=== PATIENT | male | born 1960 | race Caucasian/White ===

== ENCOUNTER 2020-07-14 07:15 | Outpatient (REF) | payer OTHER, SELFPAY ==
[2020-07-14 07:44] LABS: COVID-19 Test Negative (Negative); IDNOW Serial# 55D5AD1C
== END 2020-07-14 07:16 | disposition home or self-care (01) ==
LOC: HO.EMPCOV 07:15
PROVIDERS: PCP Internal Medicine; Visit Provider Internal Medicine
DX: Z20.828 Contact with and (suspected) exposure to other viral communicable diseases (principal)
CPT/HCPCS: 87635; C9803

== ENCOUNTER 2023-02-13 09:00 | Outpatient (AMB) | payer OTHER, SELFPAY ==
--- NOTE | 2023-02-13 09:02 | MHC.OFFVIS ---
Intake Intake Visit Reasons: New prob- Lt knee pain - No recent XR Intake Note: Joaquín is a 62 year old male who presents today for a new problem visit with complaints of left knee pain. Hx of right knee 02/03/2020 KI. 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 Since this injury he has felt pain, he thought that this would resolve but it seems to flair up more often. He has pain and fluid in the knee. He squats frequently for work. He takes OTC NSAIDs and ice application which does offer mild relief. Allergies No Known Allergies Allergy (Unverified 04/27/20 17:33) HPI New prob- Lt knee pain - No recent XR HPI Details Joaquín is a 62 year old man who presents with complaints of left knee pain. 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 He reports pain with daily activity, worse with squatting or kneeling activities, as well as using stairs. He says his pain began ~1 year ago when he injured his knee doing construction at home. He uses ice and NSAIDs, with some relief, and denies any prior treatment. He thought his knee pain would resolve so he did not seek formal treatment. He says his pain worsened in the last few weeks from overuse. He describes his pain mostly as dull, and says he has some fluid in his knee. He has a Hx of right knee by Dr. Bearden, DOS: 02/03/20, which he says went well. [facility] Surgical History (Updated 02/10/23 @ 13:29 by Anitra Pollard CMA) H/O arthroscopy of right knee (02/03/20) Social History (Updated 02/13/23 @ 09:18 by Anitra Pollard CMA) Current occupational status: employed Current occupation: IT Review of Systems Const All systems reviewed & are unremarkable except as noted in HPI and below Physical Exam Const General: no acute distress, alert and awake Orientation/consciousness: patient oriented x3 HEENT Head: Yes normocephalic and Yes atraumatic Eyes EOM: EOMs intact bilaterally Resp Effort & Inspection: normal respiratory effort and able to speak in complete sentences Cardio Jugular venous distension: no JVD Skin General skin exam: turgor normal Rashes: no rashes Neuro General: patient oriented x3 Extrem Other: Left Knee: TTP medial joint line - Jenna's Moderate effusion Psych Appearance: grossly normal Affect: normal affect Attitude: cooperative Office Procedures Joint Injection/Drain Joint Injection/Drain Details: Injected 1 mL of Decadron and 3 mL 1% lidocaine and 3 mL of 0.25% Marcaine. Site was prepped using aseptic technique. Patient tolerated the procedure well. Primary Site: left knee Approach Used: anterolateral Coding - Large joint Procedure code (CPT) selection complete Results Reviewed Results Reviewed: 02/13/23 09:30 BUPivacaine MPF 0.25 % [Sensorcaine-MPF 0.25% 10 ML] 10 ml .ROUTE .STK-MED ONE Lidocaine HCl 2 % MPF [Xylocaine 2 % MPF] 5 ml .ROUTE .STK-MED ONE dexAMETHasone sod phosphate [Decadron] 4 mg .ROUTE .STK-MED ONE I personally reviewed relevant radiographs. Mild left knee osteoarthritis Assessment & Plan Assessment & Plan (1) Osteoarthritis of left knee: Code(s): M17.12 - Unilateral primary osteoarthritis, left knee Plan: This is a 62 year old man with mild left knee OA with mild effusion. He has pain with daily activity, worse with squatting & kneeling activities as well as using stairs. He denies any prior treatment, and finds relief from ice & NSAIDs. I discussed his diagnosis and treatment options. I recommend PT, RICE, & NSAIDs. I injected his left knee today, which he tolerated well, and ordered PT for strengthening. He will follow up in 3 months, sooner prn. Plan Scribed for Jamie Hackett MD by Alvin Mir, medical oncology physician, on 02/13/23 at 9:25 AM, EST. Orders: Orders XR knee LT 2V 02/13/23 M25.562 - Pain in left knee XR knee standing BI 02/13/23 M25.562 - Pain in left knee PT Evaluation and Treatment 02/13/23 M17.12 - Unilateral primary osteoarthritis, left knee Coding Level of Care Code Est Pt Level 3 (33358) Diagnoses Osteoarthritis of left knee M17.12 CPT Codes Coding - Large joint: 21754 - Large joint ([id number])
== END 2023-02-13 09:49 | disposition home or self-care (01) ==
PROVIDERS: PCP Internal Medicine; Visit Provider Orthopaedic Surgery
DX: M17.12 Unilateral primary osteoarthritis, left knee (principal)
CPT/HCPCS: 20610; 99213

== ENCOUNTER 2023-02-13 09:00 | Outpatient (REF) | payer OTHER, SELFPAY | END 2023-02-13 09:01 | disposition home or self-care (01) | LOC: HO.HOSX 09:00 | PROVIDERS: PCP Internal Medicine; Visit Provider Orthopaedic Surgery | DX: M17.12 Unilateral primary osteoarthritis, left knee (principal) | CPT/HCPCS: 20610; 73560; 73565; J1100 ==

== ENCOUNTER 2023-02-26 12:54 | Outpatient (RCR) | payer OTHER, SELFPAY ==
--- NOTE | 2023-02-27 15:30 | MHC.PT.EP ---
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 HE STATES THAT HE BEGAN TO NOTE INCREASED LEFT KNEE DISCOMFORT ABOUT ONE YEAR AGO WITH SOME HOME CONSTRUCTION PROJECTS. IT HAS CONTINUED TO BOTHER HIM AND IS NOW BECOMING MORE FREQUENT, MORE INTENSE. HE REPORTS PAIN WORSENS WITH LONG PERIODS OF STANDING AND WALKING, SQUATTING AND KNEELING. HE REPORTS INTERMITTENT SWELLING. DENIES ANY SIGNIFICANT CREPITUS. PAIN IS INDICATED ALONG THE MEDIAL JOINT LINE. DENIES ANY PARESTHESIA OR ALTERED SENSATION. UPON EXAM IMPAIRMENTS INCLUDE DECREASED HIP AND LE STRENGTH, ALTERED GAIT PATTERN, INCREASED PAIN. FUNCTIONAL LIMTATIONS INCLUDE DECREASED ABILITY TO PERFORM LONG PERIODS OF WALKING, STATIC STANDING OR SQUATTING, DECREASED ABILITY TO KNEEL, DECREASED ABILITY TO PERFORM RECIPROCAL GAIT ON STAIRS. HE REPORTS DECREASED ABILITY TO PERFORM HIGHER DEMAND WORK AND HOMEMAKING TASKS AND DECREASED PARTICIPATION IN FITNESS AND RECREATIONAL ACTIVITIES. Frequency and Duration: The patient will be seen 2 X WEEK FOR 4 WEEKS Short Term Goals: INITIATE HEP AND PROMOTE SELF MANAGEMENT OF SYMPTOMS B2B Outside Sales Representative Goals: FULL PAIN FREE KNEE ROM FULL LE STRENGTH EQUAL ANNELISE PAIN FREE RECIPROCAL GAIT ON STAIRS AT MINIMUM 75% OF FULL FUNCTIONAL SQUAT WITH CORRECT FORM, PAIN FREE Treatment Plan: Modalities to reduce pain, spasms and effusion. Manual therapy to restore motion and function. Therapeutic exercise to improve strength and flexibility. Neuromuscular re-education for posture and balance. Therapeutic activities to return to functional activities of daily living. Electronically signed by: BRITTNI CUNHA PT DPT Please sign and return to therapist. Thank you for your referral.
--- NOTE | 2023-03-10 12:45 | MHC.PT.DC ---
[facility] [place] Office [place] Office [place] Office [address] Kenneth Rodríguez 140 [facility] [phone] F: [phone] F: [phone] F: [phone] F: [phone] Physical Therapy Discharge Report Diagnosis: LEFT KNEE OA (KP) Date of Surgery: Date of Evaluation: 02/26/23 Date of Discharge: 03/10/23 Treatments to Date: 1 Cancellations to Date: 0 No Shows to Date: 0 Discharge Status: Physician Discontinued Tx Discharge Summary: Will be undergoing surgery for meniscal tear. Electronically signed by: Anitra Dia PT DPT Please sign and return to therapist. Thank you for your referral.
== END 2023-03-10 12:45 | disposition home or self-care (01) ==
LOC: HO.PT 12:54
PROVIDERS: PCP Internal Medicine; Visit Provider Orthopaedic Surgery
DX: M17.12 Unilateral primary osteoarthritis, left knee (principal)
CPT/HCPCS: 97110; 97161

== ENCOUNTER 2023-03-03 08:56 | Outpatient (AMB) | payer OTHER, SELFPAY ==
--- NOTE | 2023-03-03 09:07 | A.OFFVIS_ITS ---
Intake Intake Visit Reasons: OV-Left knee pain Intake Note: last injection 02/13/23. Patient reports that the injection was only mildly helpful, it helped with his swelling and lowered his pain. He explains that he was doing yard work yesterday and stumbled upon a wasps nest, so he ran. He finds that he now has increased pain in the knee and is hoping to have an MRI. Allergies No Known Allergies Allergy (Unverified 04/27/20 17:33) HPI OV-Left knee pain HPI Details Joaquín is a 62 year old man who presents with complaints of left knee pain. 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 He was last seen, and injected, on 02/13/23, with some relief of his pain and swelling. He says yesterday he was forced to run away from a nest of wasps, and his pain and swelling have worsened because of this. He would like an MRI of his knee He says he found some relief from his pain with Gabapentin he had at home, and he has been taking Ibuprofen which has helped his swelling somewhat. [facility] Surgical History H/O arthroscopy of right knee (02/03/20) Social History Current occupational status: employed Current occupation: IT Review of Systems Const All systems reviewed & are unremarkable except as noted in HPI and below Physical Exam Const General: no acute distress and alert Orientation/consciousness: patient oriented x3 Neuro General: patient oriented x3 Extrem Other: Left Knee: TTP medial joint line Moderate effusion Fullness posteriorly Ambulates with antalgia Psych Appearance: grossly normal Affect: normal affect Attitude: cooperative Assessment & Plan Assessment & Plan (1) Osteoarthritis of left knee: Code(s): M17.12 - Unilateral primary osteoarthritis, left knee Plan: This is a 62 year old man with mild left knee OA with moderate effusion. He has pain with daily activity, worse with squatting & kneeling activities as well as using stairs. He was injected on 02/13/23, with some improvement of his pain & swelling, but was forced to run on 03/02/23, and now has worsening swelling & pain. I ordered an MRI to assess his left knee and I recommend PT, RICE, & NSAIDs. He will follow up after the MRI for review. (2) Effusion, left knee: Code(s): M25.462 - Effusion, left knee Plan Scribed for Jamie Hackett MD by Alvin Mir, medical attendant, on 03/03/23 at 9:15 AM, EST. Orders: Orders shoulder LT wo con Today M25.462 - Effusion, left knee Coding Level of Care Code Est Pt Level 4 (81097) Diagnoses Osteoarthritis of left knee M17.12 Effusion, left knee M25.462
== END 2023-03-03 11:53 | disposition home or self-care (01) ==
PROVIDERS: PCP Internal Medicine; Visit Provider Orthopaedic Surgery
DX: M17.12 Unilateral primary osteoarthritis, left knee (principal); M25.462 Effusion, left knee
CPT/HCPCS: 99214

== ENCOUNTER → 2023-03-03 08:56 | Outpatient (BNVA) | payer OTHER, SELFPAY | PROVIDERS: PCP Internal Medicine; Visit Provider Orthopaedic Surgery ==

== ENCOUNTER 2023-03-04 11:05 | Outpatient (REF) | payer OTHER, SELFPAY ==
--- NOTE | ~2023-03-04 | MR_ITS ---
EXAMINATION: MR KNEE WITHOUT CONTRAST, LEFT CLINICAL INFORMATION: Left knee pain. Effusion. Increasing symptoms following an injury one week ago. COMPARISON: Left knee radiographs dated 02/13/2023. TECHNIQUE: MRI of the knee without contrast was performed using routine sequences on a high-field scanner. FINDINGS: MENISCI: Medial Meniscus: Oblique inner margin radial tear of the meniscal body with extension posteriorly to the posterior body/posterior horn junction. Overall, this measures up to 1.7 cm in AP dimension without a significantly displaced meniscal flap. Mild medial extrusion of the meniscal body. Lateral Meniscus: Intact. LIGAMENTS: Cruciate: Mildly increased T1 signal within the anterior cruciate ligament, which could represent normal variation versus a Grade 1 sprain/partial tear or early mucoid degeneration. Intact posterior cruciate ligament. Collateral: Mild edema adjacent to the medial collateral ligament, consistent with an acute Grade 1 sprain/partial tear. Intact fibular collateral ligament. EXTENSOR MECHANISM: Intact. ARTICULAR CARTILAGE/BONE: Patellofemoral Compartment: Intact articular cartilage. Medial Compartment: Minimally increased T2 signal within the medial most aspect of the medial femoral condyle and medial tibial plateau, consistent with minimal osseous contusions. No fracture line. Intact articular cartilage. Lateral Compartment: Intact articular cartilage. JOINT FLUID AND BURSAE: Small to moderate joint effusion and trace Whiting's cyst. MR/MR knee LT wo con IMPRESSION: 1. Oblique inner margin radial tear of the medial meniscal body with extension posteriorly to the posterior body/posterior horn junction. Mild medial extrusion of the meniscal body. 2. Probable Grade 1 sprain/partial tear of the medial collateral ligament. 3. Increased T1 signal within the anterior cruciate ligament, which could represent normal variation versus a Grade 1 sprain/partial tear or early mucoid degeneration. 4. Minimal osseous contusions at the medial most aspect of the medial femoral condyle and medial tibial plateau. No fracture line or articular cartilage defect. 5. Small to moderate joint effusion and trace Whiting's cyst.
== END 2023-03-04 11:06 | disposition home or self-care (01) ==
LOC: HO.MRI 11:05
PROVIDERS: PCP Internal Medicine; Visit Provider Physician Assistant
DX: M17.12 Unilateral primary osteoarthritis, left knee (principal); M25.462 Effusion, left knee
CPT/HCPCS: 73721

== ENCOUNTER 2023-03-12 12:59 | Day surgery (SDC) | payer OTHER, SELFPAY ==
[2023-03-12 13:13] VITALS: BP 177/94; PULSE 56; RESP 16; TEMP 36.4; O2SAT 98; BMI 38.0
[2023-03-12] MEDS: Lactated Ringers 1,000 ML 100 ML IVCONT (13:59)
--- NOTE | 2023-03-12 14:45 | PC.NURSE ---
Report given to Bolivar CASTING INSPECTOR.
--- NOTE | 2023-03-12 15:31 | MHC.SHP ---
Pre-Procedural Eval Section A Date of Service: 03/12/23 The patient is an INPATIENT: No Changes since office visit: No Cold of Flu in the past 2 weeks, No New Medical Problems, No Changes in Medication and No Patient answered all questions The History & Physical has been completed within 30 days and I have reviewed it.: Yes Section B Chief Complaint: Unilateral primary osteoarthritis, left knee Allergies: Allergies Allergy/AdvReac Type Severity Reaction Status Date / Time No Known Allergies Allergy Verified 03/12/23 13:11 Plan I have reviewed the history and physical and performed a pertinent physical examination on my patient. No changes have occurred unless specified. Time Spent With Patient Time: Total time managing care of this patient today ____ minutes.
--- NOTE | 2023-03-12 15:57 | HO.ANESPROP2 ---
HPI - Anesthesia Eval Consult details Narrative: 62 yo male patient for Left knee arthroscopy PMFSH Active Problems Active Problems: All Active Problems (Updated 03/12/23 @ 15:58 by Zoila Sanderson MD) Osteoarthritis of left knee (Acute) Effusion, left knee (Acute) Past Medical History Medical History Hypertension Family History Family history of problems with anesthesia: No Surgical History Surgical History H/O arthroscopy of right knee (02/03/20) History of Problems with Anesthesia: No Social History Social History Patient Tobacco Use Status: Never used Tobacco Use of substances other than those prescribed or required for medical reasons: No Are you DNR?: No Advance Directives: No Advance Directives Information Provided: Yes Current occupational status: employed Current occupation: IT Meds Allergies Allergy/AdvReac Type Severity Reaction Status Date / Time No Known Allergies Allergy Verified 03/12/23 13:11 Active Medications: Current Medications Lactated Ringer's (Lr) 1,000 mls @ 100 mls/hr IVCONT .Q10H [place] Last Admin: 03/12/23 13:59 Dose: 100 mls/hr Home Medications Medication Instructions Recorded Confirmed Last Taken Type lisinopril PO DAILY 03/12/23 03/11/23 History Exam Exam Date and Time: March 12, 2023 1557 Height,Weight and Vital Signs: Height 5 ft 8 in Weight 113.398 kg Last Vital Signs Temp 97.6 F 03/12/23 13:13 Pulse 56 03/12/23 13:13 Resp 16 03/12/23 13:13 BP 177/94 H 03/12/23 13:13 Pulse Ox 98 03/12/23 13:13 O2 Del Method Room Air 03/12/23 13:13 Airway Mallampati Class: II TM Dist: >3cm Neck ROM: Full Loose/Missing/Broken Teeth: Yes (Some extractions. Denies broken or loose teeth) Heart: RRR Lungs: CTAB Assessment and Plan Assessment Anesthesia Assessment: Anesthesia Plan Discussed and Chart Reviewed Final Anesthetic Review Family History of Problems with Anesthesia: No History of Problems with Anesthesia: No NPO: Yes ASA Class: III Final Preanesthetic Review: No Changes in Pt Med Stat, Meds/Allgs Chart Reviewed, Consent Obtained/Reviewed and Anes Risks/Benef Reviewed Patient Risk: Intermediate Procedure Risk: Low Assessment/Block/Sedation in SS: Assess/Block/Sedation-SS Anesthetic Plan Anesthetic Plan: GA Disposition: Standard PACU
--- NOTE | 2023-03-12 16:56 | P.BOP_ITS ---
Brief Operative Note Date of Service: 03/12/23 Pre-op diagnosis: Left knee MMT Post-op diagnosis: same Procedure: Partial mm left knee Surgeon: Jamie Hackett MD Anesthesia: GETA and local Was an Biological Lab Technician used for this Procedure?: No Estimated blood loss (mL): 1 Tourniquet time (min): 22 IV fluids (mL): 500 Pathology: none sent Condition: stable Disposition: PACU
[2023-03-12 17:00] VITALS: BP 144/81; PULSE 57; RESP 14; TEMP 36.6; O2SAT 100
[2023-03-12 17:05] VITALS: BP 154/80; PULSE 54; RESP 14; O2SAT 100
[2023-03-12 17:10] VITALS: BP 156/88; PULSE 55; RESP 14; O2SAT 100
[2023-03-12] MEDS: Acetaminophen 1,000 MG/100 ML PIGGYBACK 400 MG IV (17:13)
[2023-03-12 17:15] VITALS: BP 171/91; PULSE 57; RESP 16; O2SAT 100
[2023-03-12] MEDS: oxyCODONE HCl Immed Release 5 MG TABLET PO (17:28)
[2023-03-12 17:30] VITALS: BP 170/86; PULSE 55; RESP 18; TEMP 36.3; O2SAT 97
--- NOTE | 2023-03-14 16:33 | P.OP_ITS ---
Operative Note Operative Note Date of Service: 03/12/23 Narrative: Date of Service: 03/12/23 Pre-op diagnosis: Left knee MMT Post-op diagnosis: same Procedure: Partial mm left knee Surgeon: Jamie Hackett MD Anesthesia: GETA and local Was an Trial Court Justice used for this Procedure?: No Estimated blood loss (mL): 1 Tourniquet time (min): 22 IV fluids (mL): 500 Pathology: none sent Condition: stable Disposition: PACU Patient was brought to the operating room placed supine on the arthroscopic table and prepped and draped in standard sterile fashion. A time-out was called to identify proper site proper procedure proper surgeon and IV antibiotics per weight were administered. I began by exsanguinating the limb and insufflating tourniquet to 300 mm Hg. Then made a standard anterolateral stab incision. The knee was insufflated with water and 30 degree arthroscope was placed. There was grade 0 fibrillations of the patella and the suprapatellar pouch and the gutters were clean. I descended into the medial compartment where I made my medial portal under direct visualization. There was obvious radial tear of the body and posterior horn of the medial meniscus. The root was intact and there was normal appearing articualr cartilage throughout the medial compartment. I used a combination of biter shaver and cautery to remove unstable portions of the meniscus. Approximately 30% meniscal volume was removed. Once I was satisfied with this the ACL was examined and found to be intact and the lateral compartment also was without the need for intervention. I then removed all instrumentation and closed the portals with skin glue. 25 mL of 2% Marcaine with epinephrine was injected into the joint and the surrounding soft tissues. Patient was then placed in sterile dressing extubated brought recovery room stable condition. There were no known complications.
== END 2023-03-12 18:18 | disposition home or self-care (01) ==
PROVIDERS: PCP Internal Medicine; Visit Provider Orthopaedic Surgery
PROC: (CPT 29870; principal; 2023-03-12 16:50)
DX: S83.242A Other tear of medial meniscus, current injury, left knee, initial encounter (principal); M17.12 Unilateral primary osteoarthritis, left knee; M25.462 Effusion, left knee; Y93.02 Activity, running; Y92.017 Garden or yard in single-family (private) house as the place of occurrence of the external cause; Y99.8 Other external cause status; I10 Essential (primary) hypertension; Z79.899 Other long term (current) drug therapy
CPT/HCPCS: 29881; J0131; J0171; J0690; J1100; J1885; J2250; J2405; J2795; J3010

== ENCOUNTER → 2023-03-12 12:59 | Outpatient (BNV) | payer OTHER, SELFPAY | PROVIDERS: PCP Internal Medicine; Visit Provider Orthopaedic Surgery | DX: S83.232A Complex tear of medial meniscus, current injury, left knee, initial encounter (principal) | CPT/HCPCS: 29881 ==

== ENCOUNTER 2023-03-17 10:34 | Outpatient (AMB) | payer OTHER, SELFPAY ==
--- NOTE | 2023-03-17 10:41 | A.OFFVIS_ITS ---
Intake Intake Visit Reasons: PO LT knee 03/12/23NE Intake Note: Joaquín 62 yr old male presents today for his 1st P/O visit for his left knee from 03/12/[address] Hackett. States he is working with P.T to improve his ROM. States he feels some pain due to his O.A but over all he is doing well. Allergies No Known Allergies Allergy (Verified 03/17/23 10:43) HPI PO LT knee 03/12/23NE HPI Details 62-year-old male who returns to the office today for post-op left knee , 03/12/[address] Hackett. He states he has pain in his knee but is doing well otherwise. He continues to work with physical therapy with benefits. He has no concerns today. [facility] Medical History Hypertension Surgical History H/O arthroscopy of right knee (02/03/20) Social History Patient Tobacco Use Status: Never used Tobacco Current occupational status: employed Current occupation: IT Review of Systems Const All systems reviewed & are unremarkable except as noted in HPI and below Physical Exam Extrem Other: Left knee: Incision clean, dry and intact. No erythema or joint effusion. ROM is 0-90 degrees. Calf supple, nontender. NVI. Assessment & Plan Assessment & Plan (1) Tear of meniscus of left knee: Code(s): S83.207A - Unspecified tear of unspecified meniscus, current injury, left knee, initial encounter Plan Dr. Hackett was available to see the patient with me today. He is going to transition to physical therapy to work on ROM and quad strengthening. He will increase activity as tolerated and if symptoms persist, he will see us back. He will return to work on 03/19/23. Orders: Orders PT Evaluation and Treatment Today S83.207A - Unspecified tear of unspecified meniscus, current injury, left knee, initial encounter Patient Instructions: Scribed for Gia Jules PA-C, by Marcial Rojas medical laboratory specialist, on 03/17/2023 at 10:45 AM ANY. I, Gia Jules PA-C, have personally reviewed and agree with the information entered by the scribe. Coding Level of Care Code Global (51638) Diagnoses Tear of meniscus of left knee S83.207A
== END 2023-03-17 11:12 | disposition home or self-care (01) ==
PROVIDERS: PCP Internal Medicine; Visit Provider Physician Assistant
DX: S83.207A Unspecified tear of unspecified meniscus, current injury, left knee, initial encounter (principal)
CPT/HCPCS: 99024

== ENCOUNTER → 2023-03-17 10:34 | Outpatient (BNVA) | payer OTHER, SELFPAY | PROVIDERS: PCP Internal Medicine; Visit Provider Physician Assistant ==

== ENCOUNTER 2023-05-09 08:00 | Outpatient (RCR) | payer OTHER, SELFPAY ==
[2023-03-27 14:03] VITALS: BP 155/84; PULSE 63
--- NOTE | 2023-03-27 14:48 | MHC.PT.EP ---
[facility] [place] Office [place] Office [place] Office [address] Rodríguez [address] [phone] F: [phone] F: [phone] F: [phone] F: [phone] Physical Therapy Plan of Care Date of Evaluation: Date of Surgery: 03/12/23 Diagnosis: Unspecified tear of unspecified meniscus, current injury, L knee Assessment: Joaquín is a 62 year old male who is referred to PT for Unspecified tear of unspecified meniscus, current injury, L knee . He had h/o knee pain due to mild meniscal tear which got worse about 1 month back when he had to run quick to escape from wasps. He re-injured his knee during this. He ended up having an MRI and L knee arthroscopic surgery about 3 weeks back (03/12/23). On PT examination he presents with 1-4/10 pain with kneeling squatting, prolonged sitting, standing and walking, no TTP, decreased knee ROM, decreased L LE strength, altered posture and gait. He is independent with all self care activities but has limited his yard work and walking. He works in [employer] and has pain with kneeling and squatting. He would benefit from skilled PT to address the aforementioned impairments and improve tolerance to functional activities. Frequency and Duration: The patient will be seen 2/week for 5 weeks Short Term Goals: 1. Pt will have 50% decrease in pain which will enable him to sit for work without discomfort in 2 weeks. 2. Pt will be able to move knee through full plane of motion without pain which will enable him to negotiate stairs without pain in 3 weeks. Machine Cloth Trimmer Goals: 1. Pt will demonstrate an increase in muscle strength by 1 grade which will enable to walk without pain in 4 weeks. 2. Pt will be independent with HEP and return to PLOF In 5 weeks. Treatment Plan: Modalities to reduce pain, spasms and effusion. Manual therapy to restore motion and function. Therapeutic exercise to improve strength and flexibility. Neuromuscular re-education for posture and balance. Therapeutic activities to return to functional activities of daily living. Electronically signed by: Cindy Olvera PT DPT Please sign and return to therapist. Thank you for your referral.
--- NOTE | 2023-05-30 13:23 | MHC.PT.DC ---
[facility] [place] [facility] [place] [facility] [place] [facility] [address] Kenneth Rodríguez [address] [phone] F: [phone] F: [phone] F: [phone] F: [phone] Physical Therapy Discharge Report Diagnosis: Unspecified tear of unspecified meniscus, current injury, L knee Date of Surgery: 03/12/23 Date of Evaluation: 03/27/23 Date of Discharge: 05/30/23 Treatments to Date: 9 Cancellations to Date: 0 No Shows to Date: 0 Discharge Status: Achieved Goals Improved Function Independent with HEP Discharge Summary: Joaquín has completed 9 PT visits and has achieved all goals set for him. He is independent with all HEP and returned to PLOF. He is therefore being d/c from PT today. Joaquín was in agreement with the plan. Electronically signed by: Cindy Olvera PT DPT Please sign and return to therapist. Thank you for your referral.
== END 2023-05-30 13:24 | disposition home or self-care (01) ==
LOC: HO.PT 08:00
PROVIDERS: Visit Provider Physician Assistant
DX: S83.207D Unspecified tear of unspecified meniscus, current injury, left knee, subsequent encounter (principal)
CPT/HCPCS: 97110; 97112; 97161; 97530

== ENCOUNTER 2023-05-15 08:29 | Outpatient (AMB) | payer OTHER, SELFPAY ==
--- NOTE | 2023-05-15 08:31 | MHC.OFFVIS ---
Intake Intake Visit Reasons: PO - Left Knee 03/12/23 Intake Note: Joaquín is a 62 year old male who presents today for a post operative appointment s/p Left Knee 03/12/23. Returned to work on 03/19/23. Last Injection was done in the left knee on 02/13/2023. Allergies No Known Allergies Allergy (Verified 05/15/23 08:32) Medication List - Last Reconciled 05/15/23 by Radha Galvan RN hydrocodone-acetaminophen 5-325 mg 1 tab PO Q8H PRN 7 days [lisinopril PO DAILY] HPI PO - Left Knee 03/12/23 HPI Details Joaquín is a 62 year old man who presents ~2 months S/P left knee partial medial meniscectomy. He returned to work on 03/19/23. He says he is doing well and his swelling has improved. He continues to have a small amount of swelling but he says this is tolerable and he is able to perform his daily activities. He is concerned about a soft spot on the inside of his knee, where he thinks he may have fluid collecting. [facility] Medical History Hypertension Surgical History H/O arthroscopy of right knee (02/03/20) Social History Patient Tobacco Use Status: Never used Tobacco Current occupational status: employed Current occupation: IT Review of Systems [employer] All systems reviewed & are unremarkable except as noted in HPI and below Physical Exam Const General: no acute distress, alert and awake Orientation/consciousness: patient oriented x3 HEENT Head: Yes normocephalic and Yes atraumatic Eyes EOM: EOMs intact bilaterally Resp Effort & Inspection: normal respiratory effort and able to speak in complete sentences Cardio Jugular venous distension: no JVD Skin General skin exam: turgor normal Rashes: no rashes Neuro General: patient oriented x3 Extrem Other: Left Knee: Well-healed portals Psych Appearance: grossly normal Affect: normal affect Attitude: cooperative Assessment & Plan Assessment & Plan (1) Tear of meniscus of left knee: Code(s): S83.207A - Unspecified tear of unspecified meniscus, current injury, left knee, initial encounter Plan: This is a 62 year old man S/P left knee partial medial meniscectomy, DOS: 03/12/23. He is doing well, and is happy with the results of his surgery. I recommend he continue to work on quad strengthening and activity as tolerated. He will follow up prn. Plan Scribed for Jamie Hackett MD by Alvin Mir, medical sonographer, on 05/15/23 at 8:45 AM, EST. Coding Level of Care Code Global (65411) Diagnoses Tear of meniscus of left knee S83.207A
== END 2023-05-15 08:46 | disposition home or self-care (01) ==
PROVIDERS: PCP Internal Medicine; Visit Provider Orthopaedic Surgery
DX: S83.207A Unspecified tear of unspecified meniscus, current injury, left knee, initial encounter (principal)
CPT/HCPCS: 99024

== ENCOUNTER → 2023-05-15 08:29 | Outpatient (BNVA) | payer OTHER, SELFPAY | PROVIDERS: PCP Internal Medicine; Visit Provider Orthopaedic Surgery ==